=== PATIENT | female | born 1985 | race Caucasian/White ===

== ENCOUNTER 2022-07-21 17:16 | Inpatient (IN) ==
[2022-07-21 18:15] LABS: Basophils # (auto) 0.05 K/uL (0-0.2); Basophils % (auto) 0.3 %; Eosinophils # (auto) 0.02 K/uL (0-0.50); Eosinophils % (auto) 0.1 %; Hematocrit (blood only) 41.7 % (34.1-44.9); Hemoglobin 14.1 g/dl (12.0-16.0); Immature Granulocytes # (auto) 0.05 K/uL (0.00-0.02); Immature Granulocytes % (auto) 0.3 %; Lymphocytes # (auto) 1.34 K/uL (1.2-3.4); Lymphocytes % (auto) 8.9 %; Mean Corpuscular Hemoglobin 28.7 pg (25.0-34.0); Mean Corpuscular Hgb Conc 33.8 g/dL (32.0-36.0); Mean Corpuscular Volume 84.8 fL (80.0-100.0); Mean Platelet Volume 9.5 fL (9.4-12.3); Monocytes # (auto) 0.63 K/uL (0.24-0.82); Monocytes % (auto) 4.2 %; Neutrophils % (auto) 86.2 %; Platelet Count 335 K/uL (130-400); RDW Coefficient of Variation 12.4 % (11.5-14.5); RDW Standard Deviation 38.1 fL (36.4-46.3); Red Blood Count 4.92 M/uL (3.93-5.22); White Blood Count 15.09 K/ul (4.8-10.8)
[2022-07-21 18:30] LABS: Appearance Urine Clear (Clear); Bilirubin Urine Negative (Negative); Blood Urine Negative (Negative); Color Urine Yellow; Glucose Urine UA Negative (Negative); Ketones Urine Negative (Negative); Leukocyte Esterase Urine Negative (Negative); Nitrite Urine Negative (Negative); Protein Urine Negative (Negative); Specific Gravity Urine 1.004 (1.000-1.030); Urobilinogen Urine Negative (Negative); pH Urine 5.5 (4.5-7.5)
[2022-07-21 18:37] LABS: Albumin Globulin Ratio 1.3 (0.9-2); Albumin Level 4.3 gm/dl (3.4-5.0); BUN Creatinine Ratio 13.5 (10-20); Bilirubin,Total 0.6 mg/dl (0.2-1.0); Calcium 9.7 mg/dl (8.5-10.1); Creatinine Clr Calc Pharmacy 77.4 ml/min; Est GFR (Non-African American) 62.9 ml/min; Globulin 3.2 gm/dl (2.5-4.0); Potassium 3.6 mmol/L (3.5-5.1); Total Protein 7.5 gm/dl (6.0-8.3)
[2022-07-21] MEDS ORDERED: SODIUM CHLORIDE 0.9% 1000ML 1,000 ML IV ONE (18:43)
--- NOTE | 2022-07-21 18:48 | Emergency Department Note ---
History of Present Illness General Chief complaint: Kidney Stone Stated complaint: SCHEDULED FOR KIDNEY STONE, TOLD TO GO TO THE ER Time Seen by Provider: 07/21/22 18:25 Source: patient and other Mode of arrival: ambulatory Limitations: no limitations History of Present Illness Maximum Pain Intensity: 1 This patient is a 37-year-old female who comes in with left-sided flank pain with a kidney stone. She said it started this morning was 9 out of 10 and she was in significant distress she has a known kidney stone on that side but she said they did ultrasound at 1 point and was gone. She also saw her doctor rec ently for questionable bladder prolapse from her vaginal area and they told her to do Kegel maneuvers and have her follow-up with [facility]. She had some frequent urination her urine does look negative so far. She saw Dr. Clemens at [facility] Dr. Lion and they gave her a shot of Toradol and she now feels significantly better its 1 out of 10. She had a CAT scan done about 2 hours ago which shows a large 8 mm left UVJ stone with moderate hydro-. Denies fever. No cough or shortness of breath she has some lower abdominal discomfort at times. Home Medications Medication Instructions Recorded Confirmed Type naproxen 500 mg tablet 500 mg PO BID PRN Pain 07/21/22 07/21/22 History rizatriptan 5 mg disintegrating 5 mg PO UD PRN Headache 07/21/22 07/21/22 History tablet Allergies Allergy/AdvReac Type Severity Reaction Status Date / Time No Known Allergies Allergy Verified 10/29/21 10:14 Past Med/Surg History Medical History Gastroparesis GERD (gastroesophageal reflux disease) Surgical History Hx laparoscopic cholecystectomy (10/13/21) Laparoscopic cholecystectomy. Dr. Martinez 10/13/2021 Social History Smoking Status: Never smoker Visual Impairment: No Limitations Feels Safe at Home: Yes Review of Systems A total of 10 systems reviewed and were otherwise negative Physical Exam Vital Signs Vital Signs - 24 hr 07/21/22 17:17 07/21/22 19:43 07/21/22 22:18 Temperature 36.6 C Temperature Source Temporal Artery Scan Pulse Rate 102 H Pulse Rate [Finger] 79 81 Respiratory Rate 16 18 16 Respiratory Effort / Characteristics Non-Labored Spontaneous Non-Labored Spontaneous Non-Labored Spontaneous Respiratory Depth Normal Normal Normal Respiratory Pattern Regular Regular Blood Pressure 117/64 Blood Pressure [Right Arm] 115/80 115/65 Blood Pressure Mean 81 Blood Pressure Mean [Right Arm] 91 81 Pulse Oximetry 94 97 97 Oxygen Delivery Method Room Air Room Air Room Air Sepsis Recent Fever Within 48 Hours No Sepsis New/Unexplained Change in Mental Status No Sepsis Action Taken by Nursing No Action Required General: Well developed well nourished young female who appears in no acute distress, breathing comfortably on room air. Normal speech HEENT: Normal cephalic atraumatic. Pupils are equal round and reactive to light. Extraocular movements are intact. Oropharynx is pink with moist mucous membranes. No swelling of the mouth lips or tongue. Neck: Supple with a midline trachea. No meningeal signs or stiffness, no JVD or bruits. No Stridor. Chest: Clear to auscultation bilaterally. No wheezes or rhonchi. No increased work of breathing. Heart: Regular rate and rhythm without murmurs or gallops. Abdomen: Soft, mildly tender in the lower abdominal area, nondistended without rebound guarding or rigidity. Extremities: No cyanosis clubbing or edema. No calf tenderness or assymetry Spine/Back. Non tender to palpation. No CVA tenderness Skin: Good turgor without rashes. Neurologic exam: Cranial nerves two through 12 are intact. Motor and sensation are intact and symmetrical throughout. Course Administered Medications Lactated Ringer's (Lr) 1,000 mls @ 200 mls/hr IV .Q5H ONE Stop: 07/22/22 03:00 Last Admin: 07/21/22 22:14 Dose: 200 mls/hr Documented By: MED Discontinued Medications Sodium Chloride (Nss 1000ml) 1,000 mls @ 999 mls/hr IV .Q1H1M ONE Stop: 07/21/22 19:43 Last Infusion: 07/21/22 20:43 Dose: 0 mls/hr Documented By: in home aide: 07/21/22 19:40 Dose: 999 mls/hr Documented By: MED Medical Decision Making Differential Diagnosis Kidney stone, kidney infection, renal colic, electrolyte or metabolic abnormality Medical Records Attestation: I reviewed the patient's medical records. Home Medications Current Medication List: was personally reviewed by me Laboratory Data Attestation: I reviewed the patient's lab results. Result diagrams: 07/21/22 Unknown 07/21/22 Unknown Lab Results 07/21/22 07/21/22 07/21/22 Range/Units 17:25 17:40 18:43 WBC (4.8-10.8) K/ul RBC (3.93-5.22) M/uL Hgb (12.0-16.0) g/dl Hct (34.1-44.9) % MCV (80.0-100.0) fL MCH (25.0-34.0) pg MCHC (32.0-36.0) g/dL RDW Std Deviation (36.4-46.3) fL RDW Coeff of Benji (11.5-14.5) % Plt Count (130-400) K/uL MPV (9.4-12.3) fL Immature Gran % (Auto) % Neut % (Auto) % Lymph % (Auto) % Bertie % (Auto) % Eos % (Auto) % Baso % (Auto) % Neut # (Auto) (1.4-6.5) K/uL Lymph # (Auto) (1.2-3.4) K/uL Bertie # (Auto) (0.24-0.82) K/uL Eos # (Auto) (0-0.50) K/uL Baso # (Auto) (0-0.2) K/uL Immature Gran # (Auto) (0.00-0.02) K/uL Sodium (136-145) mmol/L Potassium (3.5-5.1) mmol/L Chloride (98-107) mmol/L Carbon Dioxide (21-32) mmol/L Anion Gap (3-11) BUN (6-23) mg/dl Creatinine (0.6-1.2) mg/dl Est Cr Clr Drug Dosing ml/min Est GFR ( Amer) ml/min Est GFR (Non-Af Amer) ml/min BUN/Creatinine Ratio (10-20) Glucose (70-99(Fasting)) mg/dl Calcium (8.5-10.1) mg/dl Total Bilirubin (0.2-1.0) mg/dl AST (13-39) U/L ALT (7-52) U/L Alkaline Phosphatase (34-104) U/L Total Protein (6.0-8.3) gm/dl Albumin (3.4-5.0) gm/dl Globulin (2.5-4.0) gm/dl Albumin/Globulin Ratio (0.9-2) HCG, Qual Negative (Negative) Urine Color Yellow Urine Appearance Clear (Clear) Urine pH 5.5 (4.5-7.5) Ur Specific [place] 1.004 (1.000-1.030) Urine Protein Negative (Negative) Urine Glucose (UA) Negative (Negative) Urine Ketones Negative (Negative) Urine Blood Negative (Negative) Urine Nitrite Negative (Negative) Urine Bilirubin Negative (Negative) Urine Urobilinogen Negative (Negative) Ur Leukocyte Esterase Negative (Negative) POC Ur Test NEG (NEG) SARS-CoV-2, RNA, NAAT (NEGATIVE) 07/21/22 07/21/22 07/21/22 Range/Units 20:48 Unknown Unknown WBC 15.09 H (4.8-10.8) K/ul RBC 4.92 (3.93-5.22) M/uL Hgb 14.1 (12.0-16.0) g/dl Hct 41.7 (34.1-44.9) % MCV 84.8 (80.0-100.0) fL MCH 28.7 (25.0-34.0) pg MCHC 33.8 (32.0-36.0) g/dL RDW Std Deviation 38.1 (36.4-46.3) fL RDW Coeff of Benji 12.4 (11.5-14.5) % Plt Count 335 (130-400) K/uL MPV 9.5 (9.4-12.3) fL Immature Gran % (Auto) 0.3 % Neut % (Auto) 86.2 % Lymph % (Auto) 8.9 % Bertie % (Auto) 4.2 % Eos % (Auto) 0.1 % Baso % (Auto) 0.3 % Neut # (Auto) 13.00 H (1.4-6.5) K/uL Lymph # (Auto) 1.34 (1.2-3.4) K/uL Bertie # (Auto) 0.63 (0.24-0.82) K/uL Eos # (Auto) 0.02 (0-0.50) K/uL Baso # (Auto) 0.05 (0-0.2) K/uL Immature Gran # (Auto) 0.05 H (0.00-0.02) K/uL Sodium 137 (136-145) mmol/L Potassium 3.6 (3.5-5.1) mmol/L Chloride 102 (98-107) mmol/L Carbon Dioxide 25 (21-32) mmol/L Anion Gap 10 (3-11) BUN 15 (6-23) mg/dl Creatinine 1.11 (0.6-1.2) mg/dl Est Cr Clr Drug Dosing 77.4 ml/min Est GFR ( Amer) 73.0 ml/min Est GFR (Non-Af Amer) 62.9 ml/min BUN/Creatinine Ratio 13.5 (10-20) Glucose 164 H (70-99(Fasting)) mg/dl Calcium 9.7 (8.5-10.1) mg/dl Total Bilirubin 0.6 (0.2-1.0) mg/dl AST 24 (13-39) U/L ALT 30 (7-52) U/L Alkaline Phosphatase 40 (34-104) U/L Total Protein 7.5 (6.0-8.3) gm/dl Albumin 4.3 (3.4-5.0) gm/dl Globulin 3.2 (2.5-4.0) gm/dl Albumin/Globulin Ratio 1.3 (0.9-2) HCG, Qual (Negative) Urine Color Urine Appearance (Clear) Urine pH (4.5-7.5) Ur Specific [place] (1.000-1.030) Urine Protein (Negative) Urine Glucose (UA) (Negative) Urine Ketones (Negative) Urine Blood (Negative) Urine Nitrite (Negative) Urine Bilirubin (Negative) Urine Urobilinogen (Negative) Ur Leukocyte Esterase (Negative) POC Ur Test (NEG) SARS-CoV-2, RNA, NAAT NEGATIVE (NEGATIVE) Imaging Data Attestation: I personally reviewed and interpreted this imaging study as follows: MDM Narrative This patient comes in as described above she has a kidney stone that is quite large although it is distal she does have a moderate obstruction she is feeling better now although did have some Toradol. IV access was established and blood work was obtained her urinalysis does not suggest a UTI white counts mildly elevated 15 but she does not have a fever or signs of a urinary infection. She has no significant electrolyte or metabolic abnormality. she has normal renal function. She did receive 1 L IV normal saline bolus and was observed she seems comfortable. I talked her at length about going home versus being admitted . she is very leery about going home, she is concernedabout having other significant pain. given the fact that the stone is large at 8 mm, it may not pass. I do think she should be admitted/observed for pain management and further management of her stone. She may ultimately need intervention with urology if it does not pass or her pain gets more severe. At this point she has no signs of infection. I have consulted Dr. Meza who will see him in the ER for these measures. Impression & Plan Renal colic on left side, Abdominal pain, Not currently , Kidney stone, Nausea, Lab test negative for COVID-19 virus Discharge Plan Visit Data Chief Complaint: Kidney Stone Stated Complaint: SCHEDULED FOR KIDNEY STONE, TOLD TO GO TO THE ER ED Provider: Tim Markham Discharge Problem: Renal colic on left side, Abdominal pain, Not currently , Kidney stone, Nausea, Lab test negative for COVID-19 virus Forms Stand Alone Forms: My [facility] [employer] Prescriptions Prescriptions: No Action rizatriptan 5 mg tablet,disintegrating 5 mg PO UD MDD 3 pills in 24 hours PRN (Reason: Headache) Rx Instructions: take 1 tablet at onset of headache,may repeat every 2 hours naproxen 500 mg tablet 500 mg PO BID PRN (Reason: Pain) Rx Instructions: take with food Referrals Referrals: PCP,NO [Physician] - : Abdominal pain Qualifiers: Abdominal location: left lower quadrant Qualified Code(s): R10.32 - Left lower quadrant pain
[2022-07-21 20:16] LABS: Pregnancy Test, Serum Negative (Negative)
[2022-07-21] MEDS ORDERED: LACTATED RINGER'S 1,000 ML IV ONE (22:01)
--- NOTE | 2022-07-21 23:08 | History & Physical Report ---
Date of Service July 21, 2022 Assessment & Plan (1) Renal colic on left side: Plan: History struvite urolithiasis Secondary to obstructive uropathy GERD, stable on regimen Hyperglycemia rule out DM GMF Analgesia Strain urine Urology consult Re: Obstructive uropathy N.p.o. until patient seen by urology in anticipation of procedural intervention Check hemoglobin A1c DVT prophylaxis. SCDs Full code Text document was generated using [employer] voice recognition software. It may contain grammatical or spelling errors. Kindly contact undersigned for clarification of any documentation item in question. History of Present Illness Chief Complaint: Kidney stone Primary Care Provider: Francine Peres DO History obtained from patient and records. Medical history significant for urolithiasis, GERD, anxiety, mood disorder. 3 months ago, patient had sudden onset of left flank pain, nausea vomiting symptoms. Seen at urgent care center. Outpatient CT abdomen pelvis showed 7 mm calculus in the left proximal ureter resulting in mild hydronephrosis. Symptoms resolved with NSAIDs and Flomax Rx. Small stones passed as per patient. Struvite stones on analysis. Outpatient renal ultrasound done April 2022 showed mild left hydronephrosis. Yesterday, patient noted urinary frequency symptoms without flank pain/gross hematuria complaints. Patient seen at PCPs office. Outpatient UA requested which showed microscopic hematuria. Today patient had left flank pain going to the abdomen symptoms reminiscent of kidney stone attack. Some chills. No chest pain, no shortness of breath. Patient seen at PCPs office again. Outpatient CT abdomen pelvis showed 8 mm obstructive stone with moderate hy dronephrosis on CT. Patient directed to ER for evaluation. 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 Dr. 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 Beliefs That Will Affect Care: None Current Living Situation: Spouse Other Information That Helps Us Care for You: No Feels Safe at Home: Yes Assistive Devices: None Review of Systems Review of Systems: As per HPI, all other systems reviewed and negative Physical Exam Physical Exam: GENERAL: Comfortable, pleasant, no respiratory distress SKIN: Normal color, warm HEENT: [place] palpebral conjunctivae, no ptosis, moist buccal mucosa NECK : Supple, no tenderness CHEST : CTA, no tenderness HEART : RRR, no obvious murmurs ABDOMEN: Some distention, minimal left-sided abdominal tenderness EXTREMITIES : No LE swelling/tenderness, no other conspicuous deformities noted NEUROLOGIC : Coherent, no facial asymmetry, no other gross focality Results & Data Results & [facility] ([facility]) Vital Signs (Past 12 Hours) Vital Signs Temp Pulse Pulse Resp BP BP Pulse Ox 07/21/22 22:18 81 16 115/65 97 07/21/22 19:43 79 18 115/80 97 07/21/22 17:17 36.6 C 102 H 16 117/64 94 O2 Del Method 07/21/22 22:18 Room Air 07/21/22 19:43 Room Air 07/21/22 17:17 Room Air Laboratory Results Laboratory Results WBC 15.09 K/ul (4.8-10.8) H 07/21/22 Unknown RBC 4.92 M/uL (3.93-5.22) 07/21/22 Unknown Hgb 14.1 g/dl (12.0-16.0) 07/21/22 Unknown Hct 41.7 % (34.1-44.9) 07/21/22 Unknown MCV 84.8 fL (80.0-100.0) 07/21/22 Unknown MCH 28.7 pg (25.0-34.0) 07/21/22 Unknown MCHC 33.8 g/dL (32.0-36.0) 07/21/22 Unknown RDW Std Deviation 38.1 fL (36.4-46.3) 07/21/22 Unknown RDW Coeff of Benji 12.4 % (11.5-14.5) 07/21/22 Unknown Plt Count 335 K/uL (130-400) 07/21/22 Unknown MPV 9.5 fL (9.4-12.3) 07/21/22 Unknown Immature Gran % (Auto) 0.3 % 07/21/22 Unknown Neut % (Auto) 86.2 % 07/21/22 Unknown Lymph % (Auto) 8.9 % 07/21/22 Unknown [place] % (Auto) 4.2 % 07/21/22 Unknown Eos % (Auto) 0.1 % 07/21/22 Unknown Baso % (Auto) 0.3 % 07/21/22 Unknown Neut # (Auto) 13.00 K/uL (1.4-6.5) H 07/21/22 Unknown Lymph # (Auto) 1.34 K/uL (1.2-3.4) 07/21/22 Unknown [place] # (Auto) 0.63 K/uL (0.24-0.82) 07/21/22 Unknown Eos # (Auto) 0.02 K/uL (0-0.50) 07/21/22 Unknown Baso # (Auto) 0.05 K/uL (0-0.2) 07/21/22 Unknown Immature Gran # (Auto) 0.05 K/uL (0.00-0.02) H 07/21/22 Unknown Sodium 137 mmol/L (136-145) 07/21/22 Unknown Potassium 3.6 mmol/L (3.5-5.1) 07/21/22 Unknown Chloride 102 mmol/L (98-107) 07/21/22 Unknown Carbon Dioxide 25 mmol/L (21-32) 07/21/22 Unknown Anion Gap 10 (3-11) 07/21/22 Unknown BUN 15 mg/dl (6-23) 07/21/22 Unknown Creatinine 1.11 mg/dl (0.6-1.2) 07/21/22 Unknown Est Cr Clr Drug Dosing 77.4 ml/min 07/21/22 Unknown Est GFR ( Amer) 73.0 ml/min 07/21/22 Unknown Est GFR (Non-Af Amer) 62.9 ml/min 07/21/22 Unknown BUN/Creatinine Ratio 13.5 (10-20) 07/21/22 Unknown Glucose 164 mg/dl (70-99(Fasting)) H 07/21/22 Unknown Calcium 9.7 mg/dl (8.5-10.1) 07/21/22 Unknown Total Bilirubin 0.6 mg/dl (0.2-1.0) 07/21/22 Unknown AST 24 U/L (13-39) 07/21/22 Unknown ALT 30 U/L (7-52) 07/21/22 Unknown Alkaline Phosphatase 40 U/L (34-104) 07/21/22 Unknown Total Protein 7.5 gm/dl (6.0-8.3) 07/21/22 Unknown Albumin 4.3 gm/dl (3.4-5.0) 07/21/22 Unknown Globulin 3.2 gm/dl (2.5-4.0) 07/21/22 Unknown Albumin/Globulin Ratio 1.3 (0.9-2) 07/21/22 Unknown HCG, Qual Negative (Negative) 07/21/22 18:43 Urine Color Yellow 07/21/22 17:40 Urine Appearance Clear (Clear) 07/21/22 17:40 Urine pH 5.5 (4.5-7.5) 07/21/22 17:40 Ur Specific [place] 1.004 (1.000-1.030) 07/21/22 17:40 Urine Protein Negative (Negative) 07/21/22 17:40 Urine Glucose (UA) Negative (Negative) 07/21/22 17:40 Urine Ketones Negative (Negative) 07/21/22 17:40 Urine Blood Negative (Negative) 07/21/22 17:40 Urine Nitrite Negative (Negative) 07/21/22 17:40 Urine Bilirubin Negative (Negative) 07/21/22 17:40 Urine Urobilinogen Negative (Negative) 07/21/22 17:40 Ur Leukocyte Esterase Negative (Negative) 07/21/22 17:40 POC Ur Test NEG (NEG) 07/21/22 17:25 SARS-CoV-2, RNA, NAAT NEGATIVE (NEGATIVE) 07/21/22 20:48
[2022-07-22] MEDS ORDERED: PROMETHAZINE HCL 12.5 MG in SODIUM CHLORIDE 0.9% 50 ML IV PRN (00:39)
[2022-07-22] MEDS ORDERED: LORazepam 0.5 MG TAB PO PRN (00:39)
[2022-07-22] MEDS ORDERED: KETOROLAC TROMETHAMINE 15 MG/ML VIAL IV PRN (00:39)
[2022-07-22] MEDS ORDERED: ACETAMINOPHEN 325 MG TAB PO PRN (00:39)
[2022-07-22] MEDS ORDERED: oxyCODONE HCL IR 5 MG TAB (IMMEDIATE RELEASE) PO PRN (00:39)
--- NOTE | 2022-07-22 01:03 | Urology Consultation ---
Date of Consultation July 22, 2022 Assessment & Plan (1) Renal colic on left side: The patient has been admitted to the hospitalist service. Recommend proceeding as follows: Provide analgesics Provide antiemetics Hydration measures with IV fluid should be implemented Implement Flomax for expulsive therapy Make patient n.p.o. for the present time. She will be reevaluated in the morning and if no improvement consideration can be given to performing cystoscopy At the present time the patient does not appear to be septic or in worsening renal failure therefore an emergent procedure is not required at this time. History of Present Illness Attending Physician: Zenon Rudolph MD History of Present Illness This is a 37-year-old female who presented to the emergency department secondary to left-sided flank pain. Patient said that her pain began this morning and is located in the left flank with some radiation to her abdomen. She denies any fevers, shakes, or chills. No nausea or vomiting has been reported. The patient saw her primary care team today who ordered an outpatient CAT scan. Patient says that she has had a known kidney stone before but has never required any intervention. She says she has passed some kidney stone fragments in the past and believes that she was told that she had struvite stones. At the present time she denies any dysuria or hematuria. The patient did have an outpatient CT scan earlier today that showed a 8 mm stone at the left ureterovesical junction with moderate hydronephrosis. Today in the emergency department the patient has had labs including a CBC her white blood cell count was 15.0. Hemoglobin, hematocrit, platelet count were normal. Chemistry profile showed sodium, potassium, BUN, and creatinine were all normal. There is no elevation of LFTs. A test was negative. Urinalysis was not indicative of infection. A COVID test was negative. At the time of my interview the patient was in no distress. Allergies Allergy/AdvReac Type Severity Reaction Status Date / Time No Known Allergies Allergy Verified 10/29/21 10:14 Home Medications Medication Instructions Recorded Confirmed Type naproxen 500 mg tablet 500 mg PO BID PRN Pain 07/21/22 07/21/22 History rizatriptan 5 mg disintegrating 5 mg PO UD PRN Headache 07/21/22 07/21/22 History tablet Patient History Medical History Gastroparesis GERD (gastroesophageal reflux disease) Surgical History Hx laparoscopic cholecystectomy (10/13/21) Laparoscopic cholecystectomy. Dr. Martinez 10/13/2021 Social History Smoking Status: Never smoker Hx Alcohol Use: No Hx Substance Use: No Preferred Language: Kazakh Visual Impairment: No Limitations Medical Office Technologist Required: No Beliefs That Will Affect Care: None Current Living Situation: Spouse Other Information That Helps Us Care for You: No Feels Safe at Home: Yes Assistive Devices: None Review of Systems Constitutional: no fever and no chills Eyes: no eye pain Ear, Nose, Mouth, Throat: no ear pain Respiratory: no cough and no dyspnea Cardiovascular: no chest pain Gastrointestinal: no nausea and no vomiting Genitourinary: no dysuria Musculoskeletal: + back pain (Left flank) Integumentary: no rash Neurologic: no localized weakness Physical Exam Constitutional: WD/WN, vitals as above Eyes: no conjunctival abnormality ENMT: Ears: no external ear abnormality Mouth: no oropharynx abnormality Neck: trachea midline Respiratory: normal respiratory effort; no respiratory distress and no labored breathing Cardiovascular: Rate/Rhythm: regular rate and regular rhythm Gastrointestinal (Abdomen): Abdomen is soft, nonrigid, nondistended. No pain with palpation Skin: no rashes Neurologic: moves all extremities Psychiatric: A+Ox3, euthymic affect Genitourinary: no CVA tenderness (No calf tenderness no CVA tenderness at the time of my exam) Results & Data ([facility]) Vital Signs (Past 12 Hours) Vital Signs Temp Pulse Pulse Resp BP BP Pulse Ox 07/22/22 00:39 36.4 C L 74 14 114/79 98 07/22/22 00:11 90 18 102/66 98 07/21/22 22:18 81 16 115/65 97 07/21/22 19:43 79 18 115/80 97 07/21/22 17:17 36.6 C 102 H 16 117/64 94 O2 Del Method 07/22/22 00:39 07/22/22 00:11 Room Air 07/21/22 22:18 Room Air 11/29/22 19:43 Room Air 07/21/22 17:17 Room Air PG Care Time/CCT Total # of Minutes Spent Total Time Spent with Patient: Total time spent is greater than 50% in coordination of care (as documented) at patient's floor/unit and/or counseling patient: Coding Level of Care Code 56475 Inpt Consult Level 5 Diagnoses Renal colic on left side N23
[2022-07-22] MEDS: LACTATED RINGER'S 1,000 ML IV SCH ×4 (03:11→18:20)
[2022-07-22] MEDS: TAMSULOSIN HCL 0.4 MG CAP PO SCH (03:11)
[2022-07-22 08:01] LABS: Estimated Average Glucose 100 mg/dl; Hemoglobin A1C 5.1 % (4.5-5.6)
--- NOTE | 2022-07-22 09:32 | Urology Progress Note ---
Date of Service July 22, 2022 Assessment & Plan (1) Left ureteral stone: (2) Hydronephrosis, left: (3) Renal colic on left side: Plan 37yo F admitted with intractable left flank pain secondary to an obstructing stone. - Outpatient CT abdomen pelvis showed 8mm obstructive left UVJ stone with moderate hydronephrosis- Will request imaging. - Afebrile and hemodynamically stable. Labs reviewed - Wbc 15.09, Creatinine 1.11. UA on arrival not indicative of infection. - We discussed options for acute stone management. Discussed cystoscopy with stent placement. Ureteral stents were discussed as well as postoperative issues and pain management. She is aware that a second procedure will be needed for stone treatment. Also discussed option for outpatient management and symptom control with follow-up to arrange definitive stone treatment. Discussed ESWL vs. Ureteroscopy. Risks and benefits of each were discussed. All questions were answered. - Patient elects to proceed with cystoscopy and left stent placement today given her symptoms. - Will plan to proceed to the OR today for cystoscopy, left retrograde pyelogram, left ureteral stent placement. - Risks and benefits to be reviewed with patient by Dr. Lopez. COVID negative. OR notified. Will cover with IV Ancef preoperatively. - Keep NPO. Continue supportive care and pain management. - Urology will follow. Admission and Anticipated Discharge Date Admission Date: July 21, 2022 Supervising Physician Co-Signing Physician Notes I have seen and discussed Ms. Mesa' case with JOJO Mo and agree with the above documentation. She has an obstructing left ureteral stone with intractable pain. We will plan for cystoscopy and left ureteral stent placement. Assuming she recovers well after surgery, she should be appropriate for discharge this afternoon. Subjective Patient examined at bedside this AM. Awake, resting bed on arrival. No acute distress. Reports bilateral lower back pain, rates pain 3/10. Flank pain improved. No fevers. She has had occasional chills since . No n/v at present. Denies hematuria or dysuria. Reports urinary frequency but feels this is r/t bladder prolapse. Denies any noticeable stone passage. Has been NPO. Also reports a hx of struvite stones. Review of Systems Constitutional: as per Subjective / HPI Gastrointestinal: as per Subjective / HPI Genitourinary: as per Subjective / HPI Physical Exam Constitutional: no acute distress Respiratory: no respiratory distress and no labored breathing Neurologic: moves all extremities and awake Psychiatric: A+Ox3, euthymic affect Results & Data ([facility]) Vital Signs (Past 12 Hours) Vital Signs Temp Pulse Pulse Resp BP BP Pulse Ox 07/22/22 07:28 37.0 C 87 17 103/54 L 98 07/22/22 00:39 36.4 C L 74 14 114/79 98 07/22/22 00:11 90 18 102/66 98 07/21/22 22:18 81 16 115/65 97 O2 Del Method 07/22/22 07:28 Room Air 07/22/22 00:39 07/22/22 00:11 Room Air 07/21/22 22:18 Room Air PG Care Time/CCT Total # of Minutes Spent Total Time Spent with Patient: Total time spent is greater than 50% in coordination of care (as documented) at patient's floor/unit and/or counseling patient: Coding Level of Care Code None Diagnoses Left ureteral stone N20.1 Hydronephrosis, left N13.30 Renal colic on left side N23
--- NOTE | 2022-07-22 10:01 | Anesthesiology Consultation ---
Date of Service July 22, 2022 Assessment & Plan (1) Encounter for pre-operative examination: Chart Review Chart Review: Acceptable Risk for Surgery and Patient NOT seen in Pre Admission Testing Consults Requested none History Surgery Operation Date: 07/22/22 10:20 Proposed Procedures p Cystoscopy Left Retrograde Pyelogram and Stent Placement - Ghassan Lopez MD Height/Weight Height: 5 ft 8 in Weight: 82.6 kg Allergies Allergy/AdvReac Type Severity Reaction Status Date / Time No Known Allergies Allergy Verified 10/29/21 10:14 Medications Home Medications Medication Instructions Recorded Confirmed Last Taken naproxen 500 mg tablet 500 mg PO BID PRN Pain 07/21/22 07/21/22 Unknown rizatriptan 5 mg disintegrating 5 mg PO UD PRN Headache 07/21/22 07/21/22 Unknown tablet Active Medications Generic Name Dose Route Start Last Admin Trade Name Freq PRN Reason Stop Dose Admin Lactated Ringer's 1,000 mls @ 200 mls/hr 07/22/22 03:00 07/22/22 07:58 Lr IV 08/21/22 02:59 200 mls/hr .Q5H ERNIE Administration Tamsulosin HCl 0.4 mg 07/22/22 01:35 07/22/22 03:11 Tamsulosin Hcl 0.4 Mg Cap PO 08/21/22 01:34 0.4 mg QAM ERNIE Administration Past Medical History Medical History Gastroparesis GERD (gastroesophageal reflux disease) Left ureteral stone Past Surgical History Surgical History Hx laparoscopic cholecystectomy (10/13/21) Laparoscopic cholecystectomy. Dr. Martinez 10/13/2021 Social History Smoking Status: Never smoker Hx Alcohol Use: No Hx Substance Use: No Physical Exam Vital Signs Last Vital Signs Temp 98.6 F 07/22/22 07:28 Pulse 87 07/22/22 07:28 Resp 17 07/22/22 07:28 BP 103/54 L 07/22/22 07:28 Pulse Ox 98 07/22/22 07:28 O2 Del Method 07/22/22 07:28 Testing Laboratory Results 07/21/22 Unknown 07/21/22 Unknown Hemoglobin A1c 5.1 % (4.5-5.6) 07/21/22 Unknown Urine Color Yellow 07/21/22 17:40 Urine Appearance Clear (Clear) 07/21/22 17:40 Urine pH 5.5 (4.5-7.5) 07/21/22 17:40 Ur Specific [place] 1.004 (1.000-1.030) 07/21/22 17:40 Urine Protein Negative (Negative) 07/21/22 17:40 Urine Glucose (UA) Negative (Negative) 07/21/22 17:40 Urine Ketones Negative (Negative) 07/21/22 17:40 Urine Nitrite Negative (Negative) 07/21/22 17:40 Ur Leukocyte Esterase Negative (Negative) 07/21/22 17:40 07/21/22 17:25 POC Ur Test NEG Electrocardiogram Date: 10/13/21 Findings: + NSR @
--- NOTE | 2022-07-22 11:52 | Hospitalist Progress Note ---
Date of Service July 22, 2022 Assessment & Plan (1) Renal colic on left side: Plan: Left ureteral stone Obstructive uropathy Renal Colic H/O Struvite urolithiasis --CT ABD: Obstructing 8 mm left UVJ calculus resulting in moderate hydronephrosis. Plan for cystoscopy, left retrograde pyelogram, left ureteral stent placement today . Urology input Continue IV fluids Pain control N.p.o. for now Continue tamsulosin Continue Strain Needs follow-up with urology upon discharge GERD stable Hyperglycemia HbA1C:5.1 DVT Px: SCDs Code Status Full code Admission and Anticipated Discharge Date Admission Date: July 21, 2022 Subjective Patient is seen and examined at bedside Left flank pain is better today No dysuria, hematuria. Denies any chest pain, shortness of breath, dizziness, nausea Plan for left ureteral stent placement today No other complaints Review of Systems Review of Systems: All systems reviewed & are unremarkable except as noted in Subjective Physical Exam Physical Exam: Physical Exam: Vitals signs as noted above General Appearance:Moderately built and nourished, no apparent distress Head: normocephalic, Atraumatic Eyes: normal inspection, EOMI Neck: supple, Trachea midline Respiratory/Chest: Normal breath sounds, CTA, No accessory muscle use Cardiovascular: S1, S2, No murmur Abdomen/GI:Soft, mild left flank tender, Bowel sounds present Extremities/Musculoskeletal:normal inspection, no edema Neurologic/Psych:AAOX3, grossly no focal neurological deficits Skin: normal color, warm Results & Data Results & Data ([facility]) Vital Signs (Past 12 Hours) Vital Signs Temp Pulse Pulse Resp BP BP Pulse Ox 07/22/22 07:28 37.0 C 87 17 103/54 L 98 07/22/22 00:39 36.4 C L 74 14 114/79 98 07/22/22 00:11 90 18 102/66 98 O2 Del Method 07/22/22 07:28 Room Air 07/22/22 00:39 07/22/22 00:11 Room Air Laboratory Results Short CBC 07/21/22 Range/Units Unknown WBC 15.09 H (4.8-10.8) K/ul Hgb 14.1 (12.0-16.0) g/dl Hct 41.7 (34.1-44.9) % Plt Count 335 (130-400) K/uL BMP 07/21/22 Unknown Sodium 137 Potassium 3.6 Chloride 102 Carbon Dioxide 25 BUN 15 Creatinine 1.11 Glucose 164 H Calcium 9.7 Liver Function 07/21/22 Range/Units Unknown Total Bilirubin 0.6 (0.2-1.0) mg/dl AST 24 (13-39) U/L ALT 30 (7-52) U/L Alkaline Phosphatase 40 (34-104) U/L Albumin 4.3 (3.4-5.0) gm/dl Urine 07/21/22 Range/Units 17:40 Urine Color Yellow Urine Appearance Clear (Clear) Urine pH 5.5 (4.5-7.5) Ur Specific [place] 1.004 (1.000-1.030) Urine Protein Negative (Negative) Urine Glucose (UA) Negative (Negative)
[2022-07-22] MEDS ORDERED: PHENYLEPHRINE 100MCG/ML 5ML SYR ONE (13:45)
[2022-07-22] MEDS ORDERED: LIDOCAINE 2% MPF LOCAL 5 ML VIAL INFIL ONE (13:45)
[2022-07-22] MEDS ORDERED: fentaNYL citrate 100 MCG/2 ML VIAL ONE (13:45)
[2022-07-22] MEDS ORDERED: PROPOFOL IV EMULSION 10 MG/ML 20 ML VIAL IV ONE ×2 (13:45→15:11)
[2022-07-22] MEDS ORDERED: MIDAZOLAM HCL 1 MG/ML 2ML VIAL ONE (13:45)
[2022-07-22] MEDS ORDERED: ePHEDrine sulfate 50 MG/ML SYR ONE (13:45)
[2022-07-22] MEDS ORDERED: ceFAZolin 2000MG 2,000 MG/15 ML SYR IV ONE (13:53)
[2022-07-22] MEDS ORDERED: ATROPINE SULFATE 0.1 MG/ML 10ML SYR IV PRN (14:35)
[2022-07-22] MEDS ORDERED: ePHEDrine sulfate 50 MG/ML AMP IV PRN (14:35)
[2022-07-22] MEDS ORDERED: HYDROmorphone INJ 2 MG/ML SYR/VIAL IV PRN (14:35)
[2022-07-22] MEDS ORDERED: fentaNYL citrate 100 MCG/2 ML VIAL IV PRN (14:35)
[2022-07-22] MEDS ORDERED: ONDANSETRON INJ 2 MG/ML 2 ML VIAL IV PRN (14:35)
[2022-07-22] MEDS ORDERED: DIATRIZOATE MEGLUMINE 30% 100ML VIAL INSTIL ONE (15:06)
--- NOTE | 2022-07-22 15:16 | Operative Report ---
[facility] Post Operative Report Pre & Post Diagnosis Operation Date: 07/22/22 10:20 Pre-Op Diagnosis: Renal Colic Left Side Post-Op Diagnosis: Renal Colic Left Side I identified the patient and participated in the time-out.: Yes Procedure Operation Date: 07/22/22 10:20 Actual Procedures p Cystoscopy Left Retrograde Pyelogram and Stent Placement(Left) - Ghassan melendez MD Surgeon Ghassan Lopez MD Managed Care Analyst None Estimated Blood Loss 0 Findings Consistent with Post-Op Diagnosis Specimens None Drains 6 [place] by 26 cm double-J ureteral stent in the left ureter Anesthesia Type MAC Complications none Disposition Accompanied Patient To Recovery: Yes Disposition: Recovery Room Indications This is a 37-year-old female who presented to the emergency department with left flank pain associated with an obstructing left ureteral stone. Due to intractable pain she is being brought to the OR for left ureteral stent placement. Description of Procedure The patient was identified in the holding area and informed consent was confirmed. She was marked on the left side, then was taken to the operating room where anesthesia was initiated. She was placed in the dorsal lithotomy position with all pressure points appropriately padded. She was prepped and draped in the usual sterile fashion and a preoperative timeout was performed. A well-lubricated cystoscope was inserted per urethra and panendoscopy was performed. The urethra was normal in appearance. The bladder was of normal size with ureteral orifices in orthotopic position. The left ureteral orifice was identified and cannulated with a 5 [place] open- ended catheter. A retrograde pyelogram was performed demonstrating abrupt cessation of contrast at the distal ureter, consistent with location of the stone. A 0.038" ZIPwire was advanced to the level of the kidney under fluoroscopic guidance. Attempted to guide the open-ended catheter past the stone, however it was significantly impacted and the catheter could not be advanced. Over the wire, a 6 [place] x 26 centimeter double-J ureteral stent was advanced. When the wire was removed, the proximal curl was visualized in the kidney with x-ray, and the distal curl visualized in the bladder with the cystoscope. At this point the bladder was drained and all instrumentation was removed. The patient was then awakened from anesthesia and was brought to the PACU in stable condition. I attest to the content of the Intraoperative Record and any orders documented therein. Any exceptions are noted below.
--- NOTE | 2022-07-22 15:34 | Fluoroscopy Report ---
FL KUB CLINICAL HISTORY: RETROGRADE/STENT TECHNIQUE: 1 views were obtained with the C-arm in the OR with the above procedure. Total fluoroscopy time was 10.3 seconds. Comparison: None available at the time of this dictation. FINDINGS/IMPRESSION: Intraoperative images were obtained of left ureteral stent insertion. Please correlate with intraoperative fluoroscopy and operative report. ACT 112: Negative or not required by law. Electronically signed by: Marquis Bella M.D. 07/22/2022 3:32 PM
--- NOTE | 2022-07-22 15:41 | Anesthesiology Progress Note ---
Date of Service July 22, 2022 Anesthesia Post Procedure Vital Signs Vital Signs: Temp Pulse Pulse Pulse Resp BP BP 07/22/22 15:30 80 17 102/63 07/22/22 15:20 36.2 C L 76 18 104/63 07/22/22 14:15 36.7 C 72 20 118/73 07/22/22 07:28 37.0 C 87 17 103/54 L 07/22/22 00:39 36.4 C L 74 14 114/79 07/22/22 00:11 90 18 102/66 07/21/22 22:18 81 16 115/65 07/21/22 19:43 79 18 115/80 07/21/22 17:17 36.6 C 102 H 16 117/64 Pulse Ox O2 Del Method O2 Flow Rate 07/22/22 15:30 95 Room Air 07/22/22 15:20 99 Oxymask 5 07/22/22 14:15 96 Room Air 07/22/22 07:28 98 Room Air 07/22/22 00:39 98 07/22/22 00:11 98 Room Air 07/21/22 22:18 97 Room Air 07/21/22 19:43 97 Room Air 07/21/22 17:17 94 Room Air Pain Intensity Back: Pain Intensity: 3 Transfer of Care Handoff Completed per policy Notes Mental Status: alert / awake / arousable and participated in evaluation Patient Amnestic to Procedure: Yes Nausea / Vomiting: adequately controlled Pain: adequately controlled Airway Patency, RR, SpO2: stable & adequate BP & HR: stable & adequate Hydration State: stable & adequate Anesthetic Complications: no major complications apparent and Pt Satisfied with anesthetic care
[2022-07-22] MEDS ORDERED: PHENAZOPYRIDINE HCL 100 MG TAB PO PRN (16:39)
[2022-07-23 06:55] LABS: Hematocrit (blood only) 37.6 % (34.1-44.9); Hemoglobin 12.6 g/dl (12.0-16.0); Mean Corpuscular Hgb Conc 33.5 g/dL (32.0-36.0); Mean Corpuscular Volume 86.6 fL (80.0-100.0); Mean Platelet Volume 9.7 fL (9.4-12.3); Platelet Count 267 K/uL (130-400); RDW Coefficient of Variation 12.6 % (11.5-14.5); RDW Standard Deviation 40.2 fL (36.4-46.3); Red Blood Count 4.34 M/uL (3.93-5.22); White Blood Count 7.29 K/ul (4.8-10.8)
[2022-07-23 07:10] LABS: BUN Creatinine Ratio 12.6 (10-20); Creatinine Clr Calc Pharmacy 98.8 ml/min; Est GFR (African American) 97.9 ml/min; Est GFR (Non-African American) 84.5 ml/min; Magnesium 2.1 mg/dl (1.7-2.4); Potassium 4.1 mmol/L (3.5-5.1)
[2022-07-23] MEDS: TAMSULOSIN HCL 0.4 MG CAP PO SCH (07:52)
--- NOTE | 2022-07-23 09:36 | Hospitalist Progress Note ---
Date of Service July 23, 2022 Assessment & Plan (1) Renal colic on left side: Plan: Left ureteral stone Obstructive uropathy Renal Colic H/O Struvite urolithiasis --CT ABD: Obstructing 8 mm left UVJ calculus resulting in moderate hydronephrosis. S/P Cystoscopy, left retrograde pyelogram, left ureteral stent placement by Dr. Lopez on 07/22/22 Appreciate Urology input Received IV fluids Pain is controlled Continue tamsulosin Continue to strain Urine Advised to follow-up with urology upon discharge GERD stable Hyperglycemia HbA1C:5.1 DVT Px: SCDs Code Status Full code Admission and Anticipated Discharge Date Admission Date: July 21, 2022 Subjective Patient is seen and examined at bedside Left flank pain, dizziness, nausea resolved Has minimal dysuria, hematuria Denies any chest pain, shortness of breath Plan to be discharged home today Review of Systems Review of Systems: All systems reviewed & are unremarkable except as noted in Subjective Physical Exam Physical Exam: Physical Exam: Vitals signs as noted above General Appearance:Moderately built and nourished, no apparent distress Head: normocephalic, Atraumatic Eyes: normal inspection, EOMI Neck: supple, Trachea midline Respiratory/Chest: Normal breath sounds, CTA, No accessory muscle use Cardiovascular: S1, S2, No murmur Abdomen/GI:Soft, no tender, Bowel sounds present Extremities/Musculoskeletal:normal inspection, no edema Neurologic/Psych:AAOX3, grossly no focal neurological deficits Skin: normal color, warm Results & Data Results & Data ([facility]) Vital Signs (Past 12 Hours) Vital Signs Temp Pulse Resp BP Pulse Ox O2 Del Method 07/23/22 06:48 36.7 C 83 18 101/63 96 Room Air 07/23/22 03:33 36.8 C 71 18 103/68 97 Room Air 07/22/22 23:41 36.9 C 80 18 101/67 95 Room Air Laboratory Results Short CBC 07/23/22 Range/Units 05:33 WBC 7.29 (4.8-10.8) K/ul Hgb 12.6 (12.0-16.0) g/dl Hct 37.6 (34.1-44.9) % Plt Count 267 (130-400) K/uL BMP 07/23/22 05:33 Sodium 140 Potassium 4.1 Chloride 108 H Carbon Dioxide 28 BUN 11 Creatinine 0.87 Glucose 84 Calcium 9.0
--- NOTE | 2022-07-23 15:14 | Discharge Summary ---
Date of Service July 23, 2022 Admission HPI Per Admitting Provider History obtained from patient and records. Medical history significant for urolithiasis, GERD, anxiety, mood disorder. 3 months ago, patient had sudden onset of left flank pain, nausea vomiting symptoms. Seen at urgent care center. Outpatient CT abdomen pelvis showed 7 mm calculus in the left proximal ureter resulting in mild hydronephrosis. Symptoms resolved with NSAIDs and Flomax Rx. Small stones passed as per patient. Struvite stones on analysis. Outpatient renal ultrasound done April 2022 showed mild left hydronephrosis. Yesterday, patient noted urinary frequency symptoms without flank pain/gross h ematuria complaints. Patient seen at PCPs office. Outpatient UA requested which showed microscopic hematuria. Today patient had left flank pain going to the abdomen symptoms reminiscent of kidney stone attack. Some chills. No chest pain, no shortness of breath. Patient seen at PCPs office again. Outpatient CT abdomen pelvis showed 8 mm obstructive stone with moderate hydronephrosis on CT. Patient directed to ER for evaluation. 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 Admission Exam Per Admitting Provider Physical Exam Physical Exam: GENERAL: Comfortable, pleasant, no respiratory distress SKIN: Normal color, warm HEENT: [place] palpebral conjunctivae, no ptosis, moist buccal mucosa NECK : Supple, no tenderness CHEST : CTA, no tenderness HEART : RRR, no obvious murmurs ABDOMEN: Some distention, minimal left-sided abdominal tenderness EXTREMITIES : No LE swelling/tenderness, no other conspicuous deformities noted NEUROLOGIC : Coherent, no facial asymmetry, no other gross focality Principal Diagnosis Left ureteral stone Obstructive uropathy Renal Colic Discharge Data Allergies Allergy/AdvReac Type Severity Reaction Status Date / Time No Known Allergies Allergy Verified 10/29/21 10:14 Consultations 07/21/22 21:23 ED Decision to Admit Stat 07/21/22 23:52 Consult Urology Routine Procedures Performed Operation Date: 07/22/22 10:20 Actual Procedures p Cystoscopy Left Retrograde Pyelogram and Stent Placement(Left) - Ghassan Lopez MD Laboratory Results WBC 7.29 K/ul (4.8-10.8) 07/23/22 05:33 RBC 4.34 M/uL (3.93-5.22) 07/23/22 05:33 Hgb 12.6 g/dl (12.0-16.0) 07/23/22 05:33 Hct 37.6 % (34.1-44.9) 07/23/22 05:33 MCV 86.6 fL (80.0-100.0) 07/23/22 05:33 MCH 29.0 pg (25.0-34.0) 07/23/22 05:33 MCHC 33.5 g/dL (32.0-36.0) 07/23/22 05:33 RDW Std Deviation 40.2 fL (36.4-46.3) 07/23/22 05:33 RDW Coeff of Benji 12.6 % (11.5-14.5) 07/23/22 05:33 Plt Count 267 K/uL (130-400) 07/23/22 05:33 MPV 9.7 fL (9.4-12.3) 07/23/22 05:33 Immature Gran % (Auto) 0.3 % 07/21/22 Unknown Neut % (Auto) 86.2 % 07/21/22 Unknown Lymph % (Auto) 8.9 % 07/21/22 Unknown [place] % (Auto) 4.2 % 07/21/22 Unknown Eos % (Auto) 0.1 % 07/21/22 Unknown Baso % (Auto) 0.3 % 07/21/22 Unknown Neut # (Auto) 13.00 K/uL (1.4-6.5) H 07/21/22 Unknown Lymph # (Auto) 1.34 K/uL (1.2-3.4) 07/21/22 Unknown [place] # (Auto) 0.63 K/uL (0.24-0.82) 07/21/22 Unknown Eos # (Auto) 0.02 K/uL (0-0.50) 07/21/22 Unknown Baso # (Auto) 0.05 K/uL (0-0.2) 07/21/22 Unknown Immature Gran # (Auto) 0.05 K/uL (0.00-0.02) H 07/21/22 Unknown Sodium 140 mmol/L (136-145) 07/23/22 05:33 Potassium 4.1 mmol/L (3.5-5.1) 07/23/22 05:33 Chloride 108 mmol/L (98-107) H 07/23/22 05:33 Carbon Dioxide 28 mmol/L (21-32) 07/23/22 05:33 Anion Gap 4 (3-11) 07/23/22 05:33 BUN 11 mg/dl (6-23) 07/23/22 05:33 Creatinine 0.87 mg/dl (0.6-1.2) 07/23/22 05:33 Est Cr Clr Drug Dosing 98.8 ml/min 07/23/22 05:33 Est GFR ( Amer) 97.9 ml/min 07/23/22 05:33 Est GFR (Non-Af Amer) 84.5 ml/min 07/23/22 05:33 BUN/Creatinine Ratio 12.6 (10-20) 07/23/22 05:33 Glucose 84 mg/dl (70-99(Fasting)) 07/23/22 05:33 Estimat Average Glucose 100 mg/dl 07/21/22 Unknown Hemoglobin A1c 5.1 % (4.5-5.6) 07/21/22 Unknown Calcium 9.0 mg/dl (8.5-10.1) 07/23/22 05:33 Magnesium 2.1 mg/dl (1.7-2.4) 07/23/22 05:33 Total Bilirubin 0.6 mg/dl (0.2-1.0) 07/21/22 Unknown AST 24 U/L (13-39) 07/21/22 Unknown ALT 30 U/L (7-52) 07/21/22 Unknown Alkaline Phosphatase 40 U/L (34-104) 07/21/22 Unknown Total Protein 7.5 gm/dl (6.0-8.3) 07/21/22 Unknown Albumin 4.3 gm/dl (3.4-5.0) 07/21/22 Unknown Globulin 3.2 gm/dl (2.5-4.0) 07/21/22 Unknown Albumin/Globulin Ratio 1.3 (0.9-2) 07/21/22 Unknown HCG, Qual Negative (Negative) 07/21/22 18:43 Urine Color Yellow 07/21/22 17:40 Urine Appearance Clear (Clear) 07/21/22 17:40 Urine pH 5.5 (4.5-7.5) 07/21/22 17:40 Ur Specific [place] 1.004 (1.000-1.030) 07/21/22 17:40 Urine Protein Negative (Negative) 07/21/22 17:40 Urine Glucose (UA) Negative (Negative) 07/21/22 17:40 Urine Ketones Negative (Negative) 07/21/22 17:40 Urine Blood Negative (Negative) 07/21/22 17:40 Urine Nitrite Negative (Negative) 07/21/22 17:40 Urine Bilirubin Negative (Negative) 07/21/22 17:40 Urine Urobilinogen Negative (Negative) 07/21/22 17:40 Ur Leukocyte Esterase Negative (Negative) 07/21/22 17:40 POC Ur Test NEG (NEG) 07/21/22 17:25 SARS-CoV-2, RNA, NAAT NEGATIVE (NEGATIVE) 07/21/22 20:48 Impressions Abdomen Fluoroscopy 07/22/22 00:00 FL KUB CLINICAL HISTORY: RETROGRADE/STENT TECHNIQUE: 1 views were obtained with the C-arm in the OR with the above procedure. Total fluoroscopy time was 10.3 seconds. Comparison: None available at the time of this dictation. FINDINGS/IMPRESSION: Intraoperative images were obtained of left ureteral stent insertion. Please correlate with intraoperative fluoroscopy and operative report. ACT 112: Negative or not required by law. Electronically signed by: Marquis Bella M.D. 07/22/2022 3:32 PM Ordered Studies 07/22/22 FL KUB Routine Hospital Course (1) Renal colic on left side: Left ureteral stone Obstructive uropathy Renal Colic H/O Struvite urolithiasis --CT ABD: Obstructing 8 mm left UVJ calculus resulting in moderate hydronephrosis. S/P Cystoscopy, left retrograde pyelogram, left ureteral stent placement by Dr. Lopez on 07/22/22 Appreciate Urology input Received IV fluids Pain is controlled Continue tamsulosin Continue to strain Urine Advised to follow-up with urology upon discharge GERD stable Hyperglycemia HbA1C:5.1 DVT Px: SCDs Code Status Full code Total Time Total Time Spent Total Time Spent (In Minutes): 45 minutes Discharge Plan Discharge Items Patient Disposition: Home - Self-Care Reason For Visit: OBS UROPATHY Discharge Diagnosis: Left ureteral stone Obstructive uropathy Renal Colic Activity: Per Instructions section Exercise/Sports: Gradually increase as tolerated Non-emergency contact: Primary Care Provider and Urologist Call non-emergency contact if: you have any medication questions, your symptoms worsen, your pain is concerning for you and you have a fever Follow-up/Referrals: Ghassan Lopez MD [Physician] - 07/30/22 11:15 am Francine Peres DO [Primary Care Provider] - (Date & Time 07/27/2022 4:20 PM Provider Francine Peres DO Department [facility] ) Diet: Regular Add Attending Provider Instructions: Follow-up with your primary care physician in 1 week Follow-up with your neurologist Dr.Daniel Lopez as recommended for definitive stone treatment Seek immediate medical attention if your symptoms reoccur or worsen Please take all medications as instructed on discharge list below. Please call if you have any questions or problems. You can reach a [facility] hospitalist on duty at [facility] 24 hours a day by calling [phone] [employer] Provider Instructions: The surgery you had was ureteral stent placement. If you are having discomfort from your stent, it is ok to take tylenol alternating with ibuprofen. You can also take AZO, which can be purchased [id number] at the drugstore. Be aware this turns your urine a bright ora nge color. If you are prescribed a stronger medication you can take this according to instructions on the label. The stent will need to be removed. If you still have a kidney stone in place, we will make sure this is treated prior to stent removal. As long as the stent is in place, you may see some blood in the urine. You may have pain in your side when you urinate. The urology office will call you within a couple days of discharge to arrange an outpatient office visit. If you have not heard from us after 2 days, you can call the office at [phone]: Pending Studies at Discharge: No Stand-Alone Forms: [facility], Smoking Cessation Medications and DC Order Prescriptions: New tamsulosin 0.4 mg Capsule 0.4 mg PO QAM Qty: 30 0RF phenazopyridine [Pyridium] 100 mg Tablet 100 mg PO TID PRN (Reason: pain) Qty: 30 0RF Continued rizatriptan 5 mg tablet,disintegrating 5 mg PO UD MDD 3 pills in 24 hours PRN (Reason: Headache) Rx Instructions: take 1 tablet at onset of headache,may repeat every 2 hours naproxen 500 mg tablet 500 mg PO BID PRN (Reason: Pain) Rx Instructions: take with food Discharge Orders: Discharge Order (Routine); Ordered 07/23/22 Ordered By: Zenon Lindquist/Other Patient Handouts: Cystoscopy Admission Data Admit Date/Time: 07/21/22 23:50 Attending Provider: Zenon Rudolph Admit Provider: Francis Montelongo Primary Care Provider: Francine Peres Other Providers: Francis Montelongo ; Arsh Lozano ; Won Rice ; Jef Evans ; Lissette Vieira ; Ismael Chavez ; Lula Solorzano ; Lucia Neal ; Ghassan Lopez ; Sushma Reno ; Madeline Garcia ; Jose Ceron ; Jose Tellez Other Interventions: Discharge Summary Assessment (RN) Last Done: 07/23/22 10:41
== END 2022-07-23 11:32 | disposition home or self-care (01) | DRG 661 ==
LOC: ED 17:16 → 3W 23:50